=== PATIENT | male | born 1980 | race Caucasian/White ===

== ENCOUNTER 2016-09-07 03:27 | Emergency (ER) | payer SELFPAY ==
[2016-09-07 03:40] VITALS: BP 115/81
[2016-09-07] MEDS ORDERED: KETOROLAC TROMETHAMINE 30 MG/1ML VIAL IVP ONE (03:50)
[2016-09-07] MEDS ORDERED: ONDANSETRON HCL/PF 4 MG/ 2ML VIAL IVP ONE (03:50)
[2016-09-07] MEDS ORDERED: 0.9 % SODIUM CHLORIDE 1,000 ML IV ONE (03:51)
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
== END 2016-09-07 04:00 | disposition left against medical advice (07) ==
LOC: ED 03:27
DX: R10.9 Unspecified abdominal pain (principal)
CPT/HCPCS: 99283; S1016